=== PATIENT | male | born 1955 | race Caucasian/White ===

== ENCOUNTER 2017-03-21 23:34 | Inpatient (IN) ==
[2017-03-22] MEDS ORDERED: LEVOFLOXACIN INJ 750 MG in PREMIX 1 EACH IV STA (00:12)
[2017-03-22] MEDS ORDERED: methylPREDNISolone SOD SUC 125 MG/2 ML VIAL IV STA (00:12)
[2017-03-22] MEDS ORDERED: KETOROLAC 30 MG/1 ML VIAL IV STA (00:14)
[2017-03-22 00:23] LABS: Basophils % 0.3 % (0.0-0.8); Eosinophils % 0.1 % (0.00-10.9); Hematocrit 46.1 VOL% (42.0-52.0); Hemoglobin 15.1 GM/DL (14.0-18.0); Immature Granulocytes % 0.4 %; Immature Granulocytes Absolute 0.03 #; Lymphocytes # 1.1 10*3/uL (1.4-4.0); Lymphocytes % 15.4 % (21.2-54.2); Mean Corpuscular HGB Conc 32.8 GM/DL (32-36); Mean Corpuscular Hemoglobin 30 PG (27-34); Mean Corpuscular Volume 90.2 FL (87-102); Mean Platelet Volume 10.1 FL (9.6-12.0); Monocytes # 0.7 10*3/uL (0.11-0.8); Monocytes % 9.7 % (1.7-12.7); Neutrophils # 5.4 10*3/uL (1.4-7.4); Neutrophils % 74.1 % (38.7-73.9); Platelet Count 225 T/CUMM (130-400); Red Blood Count 5.11 MC/CUMM (3.8-5.5); Red Cell Distribution Width 12.5 % (9.3-17.3); White Blood Count 7.3 T/CUMM (4-12)
[2017-03-22] MEDS ORDERED: ALBUTEROL 2.5 MG/3 ML NEB RESP TX SCH (00:30)
[2017-03-22 00:32] LABS: PT Patient Result 10.5 SECS; Partial Thromboplastin Time 29.4 SECS (0-40)
[2017-03-22 00:42] LABS: Albumin 3.7 G/DL (3.4-5.0); Bilirubin,Total 0.9 MG/DL (0.2-1.0); Calcium 8.2 MG/DL (8.5-10.1); Osmolality,Calculated 269.2 MOS/KG (273-304); Total Protein 7.3 G/DL (6.4-8.3)
[2017-03-22] MEDS ORDERED: LEVOFLOXACIN INJ 150 ML IV ONE ×2 (00:42→03:27)
[2017-03-22] MEDS ORDERED: KETOROLAC 30 MG/1 ML VIAL ONE (00:42)
[2017-03-22] MEDS ORDERED: methylPREDNISolone SOD SUC 125 MG/2 ML VIAL ONE (00:42)
[2017-03-22 01:31] LABS: Barbiturates Screen,Urine Negative (Negative); Benzodiazepines Screen,Urine Negative (Negative); Cannabinoid Screen,Urine Negative (Negative); Opiate Screen,Urine Positive (Negative); Phencyclidine Screen,Urine Negative (Negative)
[2017-03-22] MEDS ORDERED: ZALEPLON 5 MG CAPSULE PO PRN (02:21)
[2017-03-22] MEDS ORDERED: ACETAMINOPHEN 325 MG TABLET PO PRN (02:21)
[2017-03-22] MEDS ORDERED: ALBUTEROL 2.5 MG/3 ML NEB RESP TX PRN (02:21)
[2017-03-22] MEDS ORDERED: ONDANSETRON 4 MG/2 ML VIAL IV PRN (02:21)
[2017-03-22] MEDS ORDERED: SODIUM CHLORIDE 0.9% 1,000 ML IV ONE (03:17)
[2017-03-22] MEDS ORDERED: methylPREDNISolone SOD SUC 40 MG/1 ML VIAL ONE ×3 (03:27→16:28)
[2017-03-22] MEDS ORDERED: NOREPINEPHRINE 4 MG/4 ML VIAL IV ONE (04:19)
[2017-03-22] MEDS: SODIUM CHLORIDE 0.9% 1,000 ML IV SCH ×3 (04:30→21:57)
[2017-03-22] MEDS: NOREPINEPHRINE 8 MG in SODIUM CHLORIDE 0.9% 242 ML IV SCH (04:30)
[2017-03-22 04:58] LABS: Basophils % 0.1 % (0.0-0.8); Hematocrit 40.8 VOL% (42.0-52.0); Hemoglobin 13.3 GM/DL (14.0-18.0); Immature Granulocytes % 0.7 %; Immature Granulocytes Absolute 0.05 #; Lymphocytes # 0.7 10*3/uL (1.4-4.0); Lymphocytes % 9.4 % (21.2-54.2); Mean Corpuscular HGB Conc 32.6 GM/DL (32-36); Mean Corpuscular Hemoglobin 29 PG (27-34); Mean Corpuscular Volume 90.3 FL (87-102); Mean Platelet Volume 10.2 FL (9.6-12.0); Monocytes # 0.2 10*3/uL (0.11-0.8); Monocytes % 2.9 % (1.7-12.7); Neutrophils # 6.5 10*3/uL (1.4-7.4); Neutrophils % 86.9 % (38.7-73.9); Platelet Count 217 T/CUMM (130-400); Red Blood Count 4.52 MC/CUMM (3.8-5.5); Red Cell Distribution Width 12.4 % (9.3-17.3); White Blood Count 7.5 T/CUMM (4-12)
[2017-03-22] MEDS: ALBUTEROL/IPRATROPIUM 3 ML NEB RESP TX SCH ×4 (08:45→23:52)
[2017-03-22] MEDS ORDERED: ASPIRIN CHEW 81 MG TABLET PO ONE (08:46)
[2017-03-22] MEDS ORDERED: ENOXAPARIN 40 MG/0.4 ML SYRINGE ONE (08:46)
[2017-03-22] MEDS ORDERED: PANTOPRAZOLE 40 MG TABLET PO ONE (08:47)
[2017-03-22] MEDS ORDERED: CETIRIZINE 10 MG TABLET ONE (08:47)
[2017-03-22] MEDS: methylPREDNISolone SOD SUC 40 MG/1 ML VIAL IV SCH ×2 (09:00→16:30)
[2017-03-22] MEDS: PANTOPRAZOLE 40 MG TABLET PO SCH (09:05)
[2017-03-22] MEDS: CETIRIZINE 10 MG TABLET PO SCH (09:05)
[2017-03-22] MEDS: ASPIRIN EC 81 MG TABLET PO SCH (09:05)
[2017-03-22] MEDS: PREGABALIN 75 MG CAPSULE PO SCH ×3 (09:05→20:11)
[2017-03-22] MEDS: ENOXAPARIN 40 MG/0.4 ML SYRINGE SUBCUT SCH (09:06)
[2017-03-22 09:24] LABS: Basophils % 0.2 % (0.0-0.8); Hemoglobin 15.2 GM/DL (14.0-18.0); Immature Granulocytes % 0.6 %; Immature Granulocytes Absolute 0.06 #; Lymphocytes # 0.5 10*3/uL (1.4-4.0); Lymphocytes % 5.1 % (21.2-54.2); Mean Corpuscular Hemoglobin 29 PG (27-34); Mean Platelet Volume 10.3 FL (9.6-12.0); Monocytes # 0.4 10*3/uL (0.11-0.8); Monocytes % 3.9 % (1.7-12.7); Neutrophils # 9.1 10*3/uL (1.4-7.4); Neutrophils % 90.2 % (38.7-73.9); Platelet Count 253 T/CUMM (130-400); Red Blood Count 5.17 MC/CUMM (3.8-5.5); Red Cell Distribution Width 12.1 % (9.3-17.3); White Blood Count 10.1 T/CUMM (4-12)
[2017-03-22 09:36] LABS: Albumin 3.5 G/DL (3.4-5.0); Bilirubin,Total 0.7 MG/DL (0.2-1.0); Calcium 8.1 MG/DL (8.5-10.1); Potassium 4.1 MMOL/L (3.5-5.1); Total Protein 7.1 G/DL (6.4-8.3)
[2017-03-22] MEDS ORDERED: traMADol 50 MG TABLET PO PRN (16:44)
[2017-03-22] MEDS: PIPERACILLIN/TAZOBACTAM 3,375 MG in SODIUM CHLORIDE 0.9% 100 ML IV SCH (19:54)
[2017-03-22] MEDS: MONTELUKAST 10 MG TABLET PO SCH (20:11)
[2017-03-22] MEDS: rOPINIRole 1 MG TABLET PO SCH (20:11)
[2017-03-22] MEDS: SUCRALFATE 1 GM TABLET PO SCH (20:11)
[2017-03-22] MEDS: methylPREDNISolone SOD SUC 125 MG/2 ML VIAL IV SCH (23:55)
[2017-03-22] MEDS: LEVOFLOXACIN INJ 500 MG in PREMIX 1 EACH IV SCH (23:56)
[2017-03-23] MEDS ORDERED: LEVOFLOXACIN INJ 750 MG in PREMIX 1 EACH IV SCH (00:30)
[2017-03-23] MEDS: PIPERACILLIN/TAZOBACTAM 3,375 MG in SODIUM CHLORIDE 0.9% 100 ML IV SCH ×3 (02:31→19:32)
[2017-03-23] MEDS: SODIUM CHLORIDE 0.9% 1,000 ML IV SCH ×4 (04:04→22:46)
[2017-03-23] MEDS: NOREPINEPHRINE 8 MG in SODIUM CHLORIDE 0.9% 242 ML IV SCH (05:32)
[2017-03-23 06:11] LABS: Immature Granulocytes % 0.7 %; Immature Granulocytes Absolute 0.07 #; Lymphocytes # 0.9 10*3/uL (1.4-4.0); Mean Corpuscular HGB Conc 33.3 GM/DL (32-36); Mean Corpuscular Hemoglobin 29 PG (27-34); Mean Corpuscular Volume 87.6 FL (87-102); Mean Platelet Volume 10.2 FL (9.6-12.0); Monocytes # 0.4 10*3/uL (0.11-0.8); Monocytes % 3.9 % (1.7-12.7); Neutrophils # 8.1 10*3/uL (1.4-7.4); Neutrophils % 86.4 % (38.7-73.9); Platelet Count 224 T/CUMM (130-400); Red Blood Count 4.45 MC/CUMM (3.8-5.5); Red Cell Distribution Width 12.2 % (9.3-17.3); White Blood Count 9.4 T/CUMM (4-12)
[2017-03-23 06:45] LABS: Calcium 7.3 MG/DL (8.5-10.1); Osmolality,Calculated 284.3 MOS/KG (273-304); Potassium 4.1 MMOL/L (3.5-5.1)
[2017-03-23] MEDS: ALBUTEROL/IPRATROPIUM 3 ML NEB RESP TX SCH ×3 (07:41→19:07)
[2017-03-23] MEDS: MONTELUKAST 10 MG TABLET PO SCH ×2 (09:01→20:35)
[2017-03-23] MEDS: PREGABALIN 75 MG CAPSULE PO SCH ×3 (09:01→20:35)
[2017-03-23] MEDS: SUCRALFATE 1 GM TABLET PO SCH ×4 (09:01→20:36)
[2017-03-23] MEDS: CETIRIZINE 10 MG TABLET PO SCH (09:01)
[2017-03-23] MEDS: ENOXAPARIN 40 MG/0.4 ML SYRINGE SUBCUT SCH (09:02)
[2017-03-23] MEDS: methylPREDNISolone SOD SUC 125 MG/2 ML VIAL IV SCH ×2 (09:02→16:16)
[2017-03-23] MEDS: ASPIRIN EC 81 MG TABLET PO SCH (09:02)
[2017-03-23] MEDS: PANTOPRAZOLE 40 MG TABLET PO SCH (09:02)
[2017-03-23] MEDS: rOPINIRole 1 MG TABLET PO SCH (20:35)
[2017-03-24] MEDS: methylPREDNISolone SOD SUC 125 MG/2 ML VIAL IV SCH ×4 (00:50→23:54)
[2017-03-24] MEDS: LEVOFLOXACIN INJ 500 MG in PREMIX 1 EACH IV SCH ×2 (00:50→23:54)
[2017-03-24] MEDS: ALBUTEROL/IPRATROPIUM 3 ML NEB RESP TX SCH ×4 (01:22→19:03)
[2017-03-24] MEDS: PIPERACILLIN/TAZOBACTAM 3,375 MG in SODIUM CHLORIDE 0.9% 100 ML IV SCH ×3 (02:48→17:31)
[2017-03-24 04:14] LABS: Basophils % 0.1 % (0.0-0.8); Hematocrit 38.9 VOL% (42.0-52.0); Hemoglobin 12.7 GM/DL (14.0-18.0); Lymphocytes # 0.9 10*3/uL (1.4-4.0); Lymphocytes % 8.1 % (21.2-54.2); Mean Corpuscular HGB Conc 32.6 GM/DL (32-36); Mean Corpuscular Hemoglobin 29 PG (27-34); Mean Corpuscular Volume 89.6 FL (87-102); Mean Platelet Volume 10.8 FL (9.6-12.0); Monocytes # 0.6 10*3/uL (0.11-0.8); Monocytes % 5.6 % (1.7-12.7); Neutrophils # 8.9 10*3/uL (1.4-7.4); Neutrophils % 85.2 % (38.7-73.9); Platelet Count 222 T/CUMM (130-400); Red Blood Count 4.34 MC/CUMM (3.8-5.5); Red Cell Distribution Width 12.4 % (9.3-17.3); White Blood Count 10.4 T/CUMM (4-12)
[2017-03-24 04:36] LABS: Calcium 7.3 MG/DL (8.5-10.1); Osmolality,Calculated 286.1 MOS/KG (273-304); Potassium 3.7 MMOL/L (3.5-5.1)
[2017-03-24] MEDS: SODIUM CHLORIDE 0.9% 1,000 ML IV SCH ×4 (05:37→21:24)
[2017-03-24] MEDS: NOREPINEPHRINE 8 MG in SODIUM CHLORIDE 0.9% 242 ML IV SCH (05:37)
[2017-03-24] MEDS: MONTELUKAST 10 MG TABLET PO SCH ×2 (09:21→21:24)
[2017-03-24] MEDS: SUCRALFATE 1 GM TABLET PO SCH ×4 (09:21→21:24)
[2017-03-24] MEDS: ENOXAPARIN 40 MG/0.4 ML SYRINGE SUBCUT SCH (09:21)
[2017-03-24] MEDS: CETIRIZINE 10 MG TABLET PO SCH (09:21)
[2017-03-24] MEDS: PANTOPRAZOLE 40 MG TABLET PO SCH (09:21)
[2017-03-24] MEDS: PREGABALIN 75 MG CAPSULE PO SCH ×3 (09:21→21:25)
[2017-03-24] MEDS: ASPIRIN EC 81 MG TABLET PO SCH (09:21)
[2017-03-24] MEDS: rOPINIRole 1 MG TABLET PO SCH (21:25)
[2017-03-25] MEDS: ALBUTEROL/IPRATROPIUM 3 ML NEB RESP TX SCH ×4 (00:06→19:27)
[2017-03-25] MEDS: PIPERACILLIN/TAZOBACTAM 3,375 MG in SODIUM CHLORIDE 0.9% 100 ML IV SCH ×2 (02:39→09:52)
[2017-03-25] MEDS: SODIUM CHLORIDE 0.9% 1,000 ML IV SCH ×3 (05:10→20:59)
[2017-03-25] MEDS: NOREPINEPHRINE 8 MG in SODIUM CHLORIDE 0.9% 242 ML IV SCH (05:38)
[2017-03-25 06:00] LABS: Basophils % 0.1 % (0.0-0.8); Hematocrit 37.3 VOL% (42.0-52.0); Hemoglobin 12.5 GM/DL (14.0-18.0); Immature Granulocytes % 0.7 %; Immature Granulocytes Absolute 0.05 #; Lymphocytes # 0.8 10*3/uL (1.4-4.0); Lymphocytes % 11.3 % (21.2-54.2); Mean Corpuscular HGB Conc 33.5 GM/DL (32-36); Mean Corpuscular Hemoglobin 29 PG (27-34); Mean Corpuscular Volume 87.8 FL (87-102); Mean Platelet Volume 10.8 FL (9.6-12.0); Monocytes # 0.3 10*3/uL (0.11-0.8); Monocytes % 4.3 % (1.7-12.7); Neutrophils # 6.2 10*3/uL (1.4-7.4); Neutrophils % 83.6 % (38.7-73.9); Platelet Count 220 T/CUMM (130-400); Red Blood Count 4.25 MC/CUMM (3.8-5.5); Red Cell Distribution Width 12.5 % (9.3-17.3); White Blood Count 7.4 T/CUMM (4-12)
[2017-03-25 06:27] LABS: Calcium 7.2 MG/DL (8.5-10.1); Osmolality,Calculated 284.3 MOS/KG (273-304); Potassium 3.7 MMOL/L (3.5-5.1)
[2017-03-25] MEDS ORDERED: guaiFENesin 200 MG/10 ML UDCUP PO PRN (09:03)
[2017-03-25] MEDS: ENOXAPARIN 40 MG/0.4 ML SYRINGE SUBCUT SCH (09:50)
[2017-03-25] MEDS: methylPREDNISolone SOD SUC 125 MG/2 ML VIAL IV SCH ×2 (09:50→15:38)
[2017-03-25] MEDS: MONTELUKAST 10 MG TABLET PO SCH ×2 (09:51→20:57)
[2017-03-25] MEDS: ASPIRIN EC 81 MG TABLET PO SCH (09:51)
[2017-03-25] MEDS: PANTOPRAZOLE 40 MG TABLET PO SCH (09:51)
[2017-03-25] MEDS: PREGABALIN 75 MG CAPSULE PO SCH ×3 (09:51→20:58)
[2017-03-25] MEDS: CETIRIZINE 10 MG TABLET PO SCH (09:51)
[2017-03-25] MEDS: SUCRALFATE 1 GM TABLET PO SCH ×4 (09:51→20:57)
[2017-03-25] MEDS ORDERED: AMINOPHYLLINE 250 MG in SODIUM CHLORIDE 0.9% 100 ML IV ONE (11:30)
[2017-03-25] MEDS ORDERED: AMINOPHYLLINE 500 MG in SODIUM CHLORIDE 0.9% 480 ML IV SCH (15:30)
[2017-03-25] MEDS: rOPINIRole 1 MG TABLET PO SCH (20:57)
[2017-03-25] MEDS: SULFAMETHOX/TRIMETHOPRIM 800-160 MG TABLET PO SCH (20:57)
[2017-03-26] MEDS: ALBUTEROL/IPRATROPIUM 3 ML NEB RESP TX SCH ×4 (00:12→20:09)
[2017-03-26] MEDS: methylPREDNISolone SOD SUC 125 MG/2 ML VIAL IV SCH ×4 (00:15→23:22)
[2017-03-26] MEDS: SODIUM CHLORIDE 0.9% 1,000 ML IV SCH ×4 (00:15→21:34)
[2017-03-26] MEDS: NOREPINEPHRINE 8 MG in SODIUM CHLORIDE 0.9% 242 ML IV SCH (03:57)
[2017-03-26] MEDS: ENOXAPARIN 40 MG/0.4 ML SYRINGE SUBCUT SCH (09:23)
[2017-03-26] MEDS: CETIRIZINE 10 MG TABLET PO SCH (09:26)
[2017-03-26] MEDS: SULFAMETHOX/TRIMETHOPRIM 800-160 MG TABLET PO SCH ×2 (09:26→21:33)
[2017-03-26] MEDS: SUCRALFATE 1 GM TABLET PO SCH ×4 (09:26→21:40)
[2017-03-26] MEDS: MONTELUKAST 10 MG TABLET PO SCH ×2 (09:26→21:34)
[2017-03-26] MEDS: ASPIRIN EC 81 MG TABLET PO SCH (09:27)
[2017-03-26] MEDS: PANTOPRAZOLE 40 MG TABLET PO SCH (09:27)
[2017-03-26] MEDS: LEVOFLOXACIN 500 MG TABLET PO SCH (09:27)
[2017-03-26] MEDS: PREGABALIN 75 MG CAPSULE PO SCH ×3 (09:27→21:33)
[2017-03-26] MEDS: THEOPHYLLINE ER (24 HR) 300 MG CAPSULE PO SCH (13:04)
[2017-03-26] MEDS: rOPINIRole 1 MG TABLET PO SCH (21:33)
[2017-03-27] MEDS: ALBUTEROL/IPRATROPIUM 3 ML NEB RESP TX SCH ×3 (00:31→13:11)
[2017-03-27] MEDS: NOREPINEPHRINE 8 MG in SODIUM CHLORIDE 0.9% 242 ML IV SCH (04:54)
[2017-03-27] MEDS: SODIUM CHLORIDE 0.9% 1,000 ML IV SCH ×2 (04:54→12:24)
[2017-03-27] MEDS: PANTOPRAZOLE 40 MG TABLET PO SCH (08:59)
[2017-03-27] MEDS: SUCRALFATE 1 GM TABLET PO SCH ×2 (08:59→12:23)
[2017-03-27] MEDS: SULFAMETHOX/TRIMETHOPRIM 800-160 MG TABLET PO SCH (08:59)
[2017-03-27] MEDS: THEOPHYLLINE ER (24 HR) 300 MG CAPSULE PO SCH (08:59)
[2017-03-27] MEDS: MONTELUKAST 10 MG TABLET PO SCH (08:59)
[2017-03-27] MEDS: ASPIRIN EC 81 MG TABLET PO SCH (08:59)
[2017-03-27] MEDS: PREGABALIN 75 MG CAPSULE PO SCH (08:59)
[2017-03-27] MEDS: CETIRIZINE 10 MG TABLET PO SCH (08:59)
[2017-03-27] MEDS: LEVOFLOXACIN 500 MG TABLET PO SCH (09:00)
[2017-03-27] MEDS: ENOXAPARIN 40 MG/0.4 ML SYRINGE SUBCUT SCH (09:00)
[2017-03-27] MEDS: methylPREDNISolone SOD SUC 125 MG/2 ML VIAL IV SCH (09:00)
[2017-03-27 12:17] VITALS: BP 123/80
== END 2017-03-27 15:23 | disposition home or self-care (01) | DRG 871 ==
LOC: EDBD → EDUNIT# → N.ED 23:34 → SUATTDRO 03-22 02:21 → N.EDINP 03-22 02:21 → N.2E 03-22 02:52 → N.CVR 03-22 17:37 → N.ICU 03-22 18:27 → N.TELES 03-23 04:21
PROVIDERS: ADMIT Internal Medicine; ATTEND Internal Medicine